=== PATIENT | female | born 1975 | race Caucasian/White ===

== ENCOUNTER 2017-08-06 12:42 | Emergency (ER) | payer OTHER ==
[~2017-08-06] VITALS: Ht 172.7 cm; Wt 77.1 kg
[~2017-08-06 12:42] MED LIST: CARAFATE1 G PO; LEVSIN0.125 MG PO; NABUMETONE500 MG PO; PERCOCET 5/3251 TAB PO; PROTONIX20 MG; PROTONIX40 MG PO; ZANTAC300 MG PO
== END 2017-08-06 17:53 | disposition home or self-care (01) ==
LOC: ER 12:42
DX: G43.909 Migraine, unspecified, not intractable, without status migrainosus (principal); M79.2 Neuralgia and neuritis, unspecified

== ENCOUNTER 2021-02-01 13:55 | Outpatient (CLI) | payer OTHER | END 2021-02-01 13:58 | disposition home or self-care (01) | LOC: PPH VACUNA 13:55 | PROVIDERS: ATTEND Emergency Medicine Pediatric Emergency Medicine | DX: Z23 Encounter for immunization (principal) ==